=== PATIENT | male | born 1960 | race Two or more races ===

== ENCOUNTER 2017-10-31 01:32 | Emergency (ER) | payer MEDICARE ==
[~2017-10-31] VITALS: Ht 172.7 cm; Wt 100.0 kg
[2017-10-31 01:33] VITALS: BP 153/90
[2017-10-31] MEDS ORDERED: ONDANSETRON ODT 4 MG ONE (02:13)
[2017-10-31] MEDS ORDERED: DIPHENHYDRAMINE 50 MG CAPSULE ONE (02:13)
[2017-10-31] MEDS ORDERED: METOCLOPRAMIDE 5 MG/ML, 2ML ONE (02:13)
[2017-10-31] MEDS ORDERED: DIPHENHYDRAMINE 50 MG/ML, 1ML ONE (02:14)
[2017-10-31 02:28] LABS: BASOPHILS # (AUTO) 0.04 x10^3/uL (0-0.1); BASOPHILS % (AUTO) 0 % (0-1); EOSINOPHILS # (AUTO) 0.17 x10^3/uL (0-0.4); EOSINOPHILS % (AUTO) 2 % (1-7); LYMPHOCYTES # (AUTO) 2.82 x10^3/uL (1-3.4); LYMPHOCYTES % (AUTO) 30 % (22-44); MD NO; MEAN CORPUSCULAR HEMOGLOBIN 29.3 pg (27.5-34.5); MEAN CORPUSCULAR HGB CONC 33.3 g/dL (33.2-36.2); MEAN CORPUSCULAR VOLUME 87.9 fL (81-97); MEAN PLATELET VOLUME 8.3 fL (7.4-10.4); MONOCYTES # (AUTO) 0.64 x10^3/uL (0.2-0.8); MONOCYTES % (AUTO) 7 % (2-9); NEUTROPHILS # (AUTO) 5.69 x10^3/uL (1.8-6.8); NEUTROPHILS % (AUTO) 61 % (42-75); PLATELET COUNT 179 x10^3/uL (130-400); RED BLOOD COUNT 5.02 x10^6/uL (4.38-5.82); RED CELL DISTRIBUTION WIDTH 14.4 % (9.4-14.8)
[2017-10-31] MEDS ORDERED: SODIUM CHLORIDE FLUSH 10ML SYR IVF ONE (02:30)
[2017-10-31] MEDS ORDERED: METOCLOPRAMIDE 5 MG/ML, 2ML IVPush ONE (02:30)
[2017-10-31] MEDS ORDERED: DIPHENHYDRAMINE 50 MG/ML, 1ML IVPush ONE (02:30)
[2017-10-31] MEDS ORDERED: ONDANSETRON ODT 4 MG PO ONE (02:30)
[2017-10-31] MEDS ORDERED: SODIUM CHLORIDE 0.9% 1,000ML IVBOLUS ONE (02:30)
[2017-10-31] MEDS ORDERED: PLEASE ENTER ALLERGIES MC SCH (02:30)
[2017-10-31] MEDS ORDERED: METFORMIN (02:31)
[2017-10-31 02:34] LABS: ALBUMIN 3.5 g/dL (3.4-5.0); ANION GAP 8 mmol/L (5-15); CALCIUM 8.4 mg/dL (8.5-10.1); CHLORIDE 106 mmol/L (98-107); CREATININE 1.07 mg/dL (0.7-1.3)
[2017-10-31 02:38] LABS: TROPONIN I < 0.015 ng/mL (0.000-0.045)
== END 2017-10-31 05:51 | disposition home or self-care (01) ==
LOC: ED 02:23
DX: R51 Headache (principal); R11.2 Nausea with vomiting, unspecified; E11.9 Type 2 diabetes mellitus without complications
CPT/HCPCS: 36415; 70450; 71045; 80048; 82040; 82962; 84484; 85025; 93005; 96361; 96374; 96375; 99285; J1200; J2765; J7030; Q0162

== ENCOUNTER 2018-10-10 15:42 | Emergency (ER) | payer MEDICARE ==
[~2018-10-10] VITALS: Ht 170.2 cm; Wt 102.0 kg
[~2018-10-10 15:42] MED LIST: METFORMIN
[2018-10-10 15:46] VITALS: BP 190/118
--- NOTE | 2018-10-10 16:00 | NUR ---
pt to room with a steady gait. family at bedside. provider in room at this time.
[2018-10-10 16:30] LABS: BASOPHILS # (AUTO) 0.04 x10^3/uL (0-0.1); BASOPHILS % (AUTO) 1 % (0-1); EOSINOPHILS # (AUTO) 0.37 x10^3/uL (0-0.4); EOSINOPHILS % (AUTO) 5 % (1-7); LYMPHOCYTES # (AUTO) 2.35 x10^3/uL (1-3.4); LYMPHOCYTES % (AUTO) 29 % (22-44); MD NO; MEAN CORPUSCULAR HEMOGLOBIN 30.5 pg (27.5-34.5); MEAN CORPUSCULAR HGB CONC 33.4 g/dL (33.2-36.2); MEAN CORPUSCULAR VOLUME 91.3 fL (81-97); MONOCYTES # (AUTO) 0.52 x10^3/uL (0.2-0.8); MONOCYTES % (AUTO) 7 % (2-9); NEUTROPHILS # (AUTO) 4.79 x10^3/uL (1.8-6.8); NEUTROPHILS % (AUTO) 59 % (42-75); PLATELET COUNT 221 x10^3/uL (130-400); RED BLOOD COUNT 4.84 x10^6/uL (4.38-5.82); RED CELL DISTRIBUTION WIDTH 12.9 % (9.4-14.8)
[2018-10-10 16:38] LABS: ANION GAP 7 mmol/L (5-15); CALCIUM 9.1 mg/dL (8.5-10.1); CHLORIDE 106 mmol/L (98-107); CREATININE 1.02 mg/dL (0.7-1.3)
[2018-10-10 16:39] LABS: ALBUMIN 3.9 g/dL (3.4-5.0)
[2018-10-10] MEDS ORDERED: BACITRACIN ZINC OINT 500U/GM, 0.9 GM ONE (16:42)
[2018-10-11] MEDS ORDERED: LISINOPRIL PO (18:27)
[2018-10-11] MEDS ORDERED: LOSARTAN PO (18:27)
== END 2018-10-10 17:32 | disposition home or self-care (01) ==
LOC: ED 16:40
DX: L03.031 Cellulitis of right toe (principal); L03.116 Cellulitis of left lower limb; E11.9 Type 2 diabetes mellitus without complications
CPT/HCPCS: 36415; 80048; 82040; 85025; 99284

== ENCOUNTER 2018-10-11 17:58 | Emergency (ER) | payer MEDICARE ==
[~2018-10-11] VITALS: Ht 170.2 cm; Wt 101.0 kg
[2018-10-11] MEDS ORDERED: LOSARTAN PO (18:27)
[2018-10-11] MEDS ORDERED: LISINOPRIL PO (18:27)
[2018-10-11] MEDS ORDERED: DIPHENHYDRAMINE 25 MG CAPSULE ONE (18:49)
--- NOTE | 2018-10-11 18:53 | NUR ---
REPORT RECIEVED FROM KYLE AN. PT RESTING ON [facility] WITH FAMILY AT BEDSIDE.
[2018-10-11] MEDS ORDERED: DIPHENHYDRAMINE 25 MG CAPSULE PO ONE (19:00)
[2018-10-11 19:15] VITALS: BP 130/78
--- NOTE | 2018-10-11 19:15 | NUR ---
Patient/Caregiver given discharge instructions and they have confirmed that they understand the instructions. Patient ambulatory with steady gait.
== END 2018-10-11 19:18 | disposition home or self-care (01) ==
LOC: ED 19:12
DX: T78.40XA Allergy, unspecified, initial encounter (principal); E11.9 Type 2 diabetes mellitus without complications; X58.XXXA Exposure to other specified factors, initial encounter
CPT/HCPCS: 99283; Q0163